=== PATIENT | male | born 1985 | race African-American/Black ===

== ENCOUNTER 2022-03-07 09:04 | Emergency (ER) | payer OTHER ==
[2022-03-07 09:21] VITALS: BP 104/65; PULSE 75; RESP 20; BMI 24.7
[2022-03-07] MEDS ORDERED: ONDANSETRON *ODT* 4 MG TABLET SL ONE (09:27)
[2022-03-07] MEDS ORDERED: ONDANSETRON *ODT* 4 MG TABLET ONE (09:29)
== END 2022-03-07 11:07 | disposition home or self-care (01) ==
LOC: JER 09:04
DX: R11.2 Nausea with vomiting, unspecified (principal); R19.7 Diarrhea, unspecified
CPT/HCPCS: 0241U-QW; 93005; 93010; 99284-25; Q0162